=== PATIENT | female | born 1970 | race Caucasian/White ===

== ENCOUNTER 2017-02-06 23:15 | Observation (INO) | payer MEDICAID ==
[2017-02-06] MEDS ORDERED: ONDANSETRON 4 MG/2 ML VIAL IVP STA (23:52)
[2017-02-06] MEDS ORDERED: SODIUM CHLORIDE 0.9% 500 ML IV STA (23:52)
[2017-02-06] MEDS ORDERED: MORPHINE SULFATE 2 MG/ML SYRINGE IVP STA (23:52)
--- NOTE | 2017-02-06 23:58 | ED ---
Nausea/Vomiting/Diarrhea HPI - General Chief complaint: Nausea/Vomiting/Diarrhea Stated complaint: vomiting Time Seen by Provider: 02/06/17 23:41 Source: patient, family Mode of arrival: ambulatory Limitations: no limitations - History of Present Illness Initial comments: This patient is a 46-year-old woman who presents to be evaluated for vomiting and diarrhea as well as some abdominal pain that started about 4-5 hours ago now. Patient had been at a family outing, and then started feel nauseated. Since that time she has had multiple episodes of vomiting, she states more or less continuously since things started. After having vomited a couple of times she noticed that she was having some abdominal pain that she locates in the right lower quadrant of the abdomen. The pain is constant, dull, moderate. Patient has had 3 episodes of diarrhea as well. Patient is not seeing any blood resulting from the vomiting or diarrhea nor any coffee-ground emesis or dark tarry stools. MD complaint: nausea, vomiting, diarrhea, abdominal pain -: hour(s) Description of Vomiting: food contents, bilious Description of Diarrhea: water Associated Abdominal Pain: Yes Location: RLQ Radiation: none Severity: moderate Quality: dull Consistency: constant Improves with: none Worsens with: none Associated Symptoms: nausea/vomiting - Related Data Home Medications Medication Instructions Recorded Confirmed Escitalopram Oxalate [Lexapro] 10 mg PO QID 02/06/17 02/06/17 Norgestimate-Ethinyl Estradiol 1 tab PO DAILY 02/07/17 02/07/17 [Mononessa 28 Tablet] Allergies Allergy/AdvReac Type Severity Reaction Status Date / Time No Known Allergies Allergy Verified 02/06/17 23:22 Review of Systems ROS Statement: Those systems with pertinent positive or pertinent negative responses have been documented in the HPI. ROS Other: All systems not noted in ROS Statement are negative. Constitutional: Denies: fever, chills Respiratory: Denies: cough, dyspnea Cardiovascular: Denies: chest pain, palpitations, syncope Gastrointestinal: Reports: abdominal pain, nausea, vomiting, diarrhea. Denies: hematemesis, melena, hematochezia Genitourinary: Denies: dysuria, hematuria, abnormal menses Musculoskeletal: Denies: back pain Skin: Denies: rash Neurological: Denies: headache, weakness, numbness Past Medical History Past Medical History: No Reported History Additional Past Medical History / Comment(s): endometreosis History of Any Multi-Drug Resistant Organisms: None Reported Past Surgical History: No Surgical Hx Reported Past Psychological History: Depression Smoking Status: Never smoker Past Alcohol Use History: None Reported Past Drug Use History: Marijuana - Past Family History Mother Family Medical History: No Reported History General Exam Limitations: no limitations General appearance: alert, in no apparent distress Head exam: Present: atraumatic, normocephalic, normal inspection Eye exam: Present: normal appearance. Absent: scleral icterus, conjunctival injection ENT exam: Present: mucous membranes dry Neck exam: Present: normal inspection Respiratory exam: Present: normal lung sounds bilaterally. Absent: respiratory distress, wheezes, rales, rhonchi, stridor Cardiovascular Exam: Present: regular rate, normal rhythm, normal heart sounds. Absent: systolic murmur, diastolic murmur, rubs, gallop GI/Abdominal exam: Present: soft, tenderness (Right lower quadrant), diminished bowel sounds. Absent: distended, guarding, rebound, rigid, mass, pulsatile mass , hernia Extremities exam: Present: normal inspection, normal capillary refill. Absent: pedal edema, calf tenderness Back exam: Present: normal inspection. Absent: CVA tenderness (R), CVA tenderness (L) Neurological exam: Present: alert Skin exam: Present: warm, dry, intact, pallor. Absent: rash Course Vital Signs 02/06/17 02/07/17 02/07/17 23:19 01:13 03:15 Temperature 98 F 97.2 F L 97.3 F L Pulse Rate 69 62 63 Respiratory 18 18 18 Rate Blood Pressure 150/73 158/70 126/60 O2 Sat by Pulse 100 97 97 Oximetry 02/07/17 04:50 Temperature Pulse Rate 68 Respiratory 16 Rate Blood Pressure 137/66 O2 Sat by Pulse 97 Oximetry Medical Decision Making - Medical Decision Making This patient is a 46-year-old woman who presents with vomiting and some right lower quadrant pain. The patient's CT is negative for acute appendicitis, there is some possible ileitis versus poor distention on the CT. The patient did require multiple rounds of antibiotic and still had some vomiting so will be admitted for further hydration and antiemetics. She did have good pain relief. - Lab Data Result diagrams: 02/07/17 00:08 02/07/17 00:08 Lab Results 02/07/17 02/07/17 02/07/17 Range/Units 00:08 00:08 01:05 WBC 13.1 H (3.8-10.6) k/uL RBC 4.64 (3.80-5.40) m/uL Hgb 14.4 (11.4-16.0) gm/dL Hct 41.9 (34.0-46.0) % MCV 90.3 (80.0-100.0) fL MCH 31.1 (25.0-35.0) pg MCHC 34.4 (31.0-37.0) g/dL RDW 13.3 (11.5-15.5) % Plt Count 320 (150-450) k/uL Neutrophils % 68 % Lymphocytes % 26 % Monocytes % 3 % Eosinophils % 0 % Basophils % 0 % Neutrophils # 8.9 H (1.3-7.7) k/uL Lymphocytes # 3.5 (1.0-4.8) k/uL Monocytes # 0.4 (0-1.0) k/uL Eosinophils # 0.1 (0-0.7) k/uL Basophils # 0.1 (0-0.2) k/uL Sodium 139 (137-145) mmol/L Potassium 3.9 (3.5-5.1) mmol/L Chloride 101 (98-107) mmol/L Carbon Dioxide 23 (22-30) mmol/L Anion Gap 15 mmol/L BUN 14 (7-17) mg/dL Creatinine 0.70 (0.52-1.04) mg/dL Est GFR (MDRD) Af Amer >60 (>60 ml/min/1.73 sqM) Est GFR (MDRD) Non-Af >60 (>60 ml/min/1.73 sqM) Glucose 185 H (74-99) mg/dL Calcium 9.5 (8.4-10.2) mg/dL Total Bilirubin 0.4 (0.2-1.3) mg/dL AST 26 (14-36) U/L ALT 34 (9-52) U/L Alkaline Phosphatase 68 (38-126) U/L Total Protein 7.7 (6.3-8.2) g/dL Albumin 4.4 (3.5-5.0) g/dL Amylase 119 H (30-110) U/L Lipase 97 (23-300) U/L Urine Color Urine Appearance (Clear) Urine pH (5.0-8.0) Ur Specific [place] (1.001-1.035) Urine Protein (Negative) Urine Glucose (UA) (Negative) Urine Ketones (Negative) Urine Blood (Negative) Urine Nitrite (Negative) Urine Bilirubin (Negative) Urine Urobilinogen (<2.0) mg/dL Ur Leukocyte Esterase (Negative) Urine HCG, Qual Not Detected (Not Detectd) 02/07/17 Range/Units 01:05 WBC (3.8-10.6) k/uL RBC (3.80-5.40) m/uL Hgb (11.4-16.0) gm/dL Hct (34.0-46.0) % MCV (80.0-100.0) fL MCH (25.0-35.0) pg MCHC (31.0-37.0) g/dL RDW (11.5-15.5) % Plt Count (150-450) k/uL Neutrophils % % Lymphocytes % % Monocytes % % Eosinophils % % Basophils % % Neutrophils # (1.3-7.7) k/uL Lymphocytes # (1.0-4.8) k/uL Monocytes # (0-1.0) k/uL Eosinophils # (0-0.7) k/uL Basophils # (0-0.2) k/uL Sodium (137-145) mmol/L Potassium (3.5-5.1) mmol/L Chloride (98-107) mmol/L Carbon Dioxide (22-30) mmol/L Anion Gap mmol/L BUN (7-17) mg/dL Creatinine (0.52-1.04) mg/dL Est GFR (MDRD) Af Amer (>60 ml/min/1.73 sqM) Est GFR (MDRD) Non-Af (>60 ml/min/1.73 sqM) Glucose (74-99) mg/dL Calcium (8.4-10.2) mg/dL Total Bilirubin (0.2-1.3) mg/dL AST (14-36) U/L ALT (9-52) U/L Alkaline Phosphatase (38-126) U/L Total Protein (6.3-8.2) g/dL Albumin (3.5-5.0) g/dL Amylase (30-110) U/L Lipase (23-300) U/L Urine Color Colorless Urine Appearance Clear (Clear) Urine pH 7.5 (5.0-8.0) Ur Specific [place] 1.010 (1.001-1.035) Urine Protein Negative (Negative) Urine Glucose (UA) 3+ H (Negative) Urine Ketones 3+ H (Negative) Urine Blood Negative (Negative) Urine Nitrite Negative (Negative) Urine Bilirubin Negative (Negative) Urine Urobilinogen <2.0 (<2.0) mg/dL Ur Leukocyte Esterase Negative (Negative) Urine HCG, Qual (Not Detectd) Disposition Clinical Impression: Ileitis, Intractable vomiting with nausea Disposition: ADMITTED IP TO THIS [facility] Condition: Fair
[2017-02-07 00:21] LABS: Basophils # (A) 0.1 k/uL (0-0.2); Basophils % (A) 0 %; CH 31.1; CHCM 34.6; Eosinophils # (A) 0.1 k/uL (0-0.7); Eosinophils % (A) 0 %; HCT 41.9 % (34.0-46.0); HDW 2.51; HGB 14.4 gm/dL (11.4-16.0); Luc % (Auto) 2; Lymphocytes # (A) 3.5 k/uL (1.0-4.8); Lymphocytes % (A) 26 %; MCH 31.1 pg (25.0-35.0); MCHC 34.4 g/dL (31.0-37.0); MCV 90.3 fL (80.0-100.0); Mean Platelet Volume 6.5; Monocytes # (A) 0.4 k/uL (0-1.0); Monocytes % (A) 3 %; Neutrophils # (A) 8.9 k/uL (1.3-7.7); Neutrophils % (A) 68 %; RBC 4.64 m/uL (3.80-5.40); RDW 13.3 % (11.5-15.5); WBC 13.1 k/uL (3.8-10.6); WBC (Perox) 13.21
[2017-02-07 00:30] LABS: ALT 34 U/L (9-52); AST 26 U/L (14-36); Alkaline Phosphatase 68 U/L (38-126); Amylase 119 U/L (30-110); Anion Gap 15 mmol/L; Blood Urea Nitrogen 14 mg/dL (7-17); Calcium 9.5 mg/dL (8.4-10.2); Carbon Dioxide 23 mmol/L (22-30); Chloride 101 mmol/L (98-107); Glucose 185 mg/dL (74-99); Non-African American GFR(MDRD) >60 (>60 ml/min/1.73 sqM); Potassium 3.9 mmol/L (3.5-5.1); Sodium 139 mmol/L (137-145); Total Bilirubin 0.4 mg/dL (0.2-1.3); Total Protein 7.7 g/dL (6.3-8.2)
--- NOTE | 2017-02-07 01:14 | CT ---
EXAM: CT Abdomen and Pelvis Without Intravenous Contrast. CLINICAL HISTORY: Reason: abdominal pain hx. of endometriosis. Lower abdominal pain. nausea/vomiting/ diarrhea. Pt. denies . TECHNIQUE: Axial computed tomography images of the abdomen and pelvis without intravenous contrast. CTDI is 5.10 mGy and DLP is 216.50 mGy-cm This CT exam was performed using one or more of the following dose reduction techniques: automated exposure control, adjustment of the mA and/or kV according to patient size, and/or use of iterative reconstruction technique. COMPARISON: No relevant prior studies available. FINDINGS: Lack of contrast limits evaluation of viscera. No urolithiasis or hydronephrosis. No bowel obstruction. Multiple bowel segments are underdistended limiting evaluation for wall thickening. Equivocal mural thickening in the transverse through distal colon along with some segments of small bowel may relate to underdistention. Correlate for any evidence of enteritis/colitis. Findings are equivocal, and again lack of contrast/underdistention limits evaluation. No evidence for appendicitis, acute pancreatitis or other acute process. Suspected fibroid uterus. Mild hypoventilatory changes lung bases. Osseous degenerative changes. Nonaggressive sclerotic focus right iliac bone. IMPRESSION: No bowel obstruction. Multiple bowel segments are underdistended limiting evaluation for wall thickening. Equivocal mural thickening in the transverse through distal colon along with some segments of small bowel may relate to underdistention. Correlate for any evidence of enteritis/colitis. Findings are equivocal, and again lack of contrast/underdistention limits evaluation. Incidental findings, as above.
[2017-02-07 01:22] LABS: Appearance,Urine Clear (Clear); Bilirubin,Urine Negative (Negative); Glucose,Urine (UA) 3+ (Negative); Leukocyte Esterase,Urine Negative (Negative); Nitrite,Urine Negative (Negative); PH, Urine 7.5 (5.0-8.0); Protein,Urine Negative (Negative); UA Billing (MACRO vs. MICRO) CHEM; Urobilinogen,Urine <2.0 mg/dL (<2.0)
[2017-02-07] MEDS ORDERED: ONDANSETRON 4 MG/2 ML VIAL IVP STA ×2 (01:26→02:31)
[2017-02-07 01:30] LABS: Ketones,Urine 3+ (Negative)
[2017-02-07] MEDS ORDERED: SODIUM CHLORIDE 0.9% 500 ML IV STA (02:32)
[2017-02-07] MEDS ORDERED: METOCLOPRAMIDE 5 MG/ML 2 ML VIAL IVP STA (03:40)
[2017-02-07] MEDS ORDERED: PROCHLORPERAZINE 5 MG TAB PO PRN (04:31)
[2017-02-07] MEDS ORDERED: PROCHLORPERAZINE SUPPOSITORY 25 MG SUPP RECTAL PRN (04:31)
[2017-02-07] MEDS ORDERED: MORPHINE SULFATE 4 MG/ML SYRINGE IV PRN (04:31)
[2017-02-07] MEDS ORDERED: ONDANSETRON 4 MG/2 ML VIAL IVP PRN (04:31)
[2017-02-07] MEDS ORDERED: NALOXONE 0.4 MG/ML 1 ML VIAL IV PRN (04:31)
[2017-02-07 05:04] VITALS: RESP 18
[2017-02-07] MEDS: SODIUM CHLORIDE 0.9% 1,000 ML IV SCH ×2 (05:56→12:26)
[2017-02-07 06:26] VITALS: BMI 22.8
[2017-02-07 08:18] VITALS: BP 143/76; PULSE 68; TEMP 97.9
[2017-02-07] MEDS ORDERED: PANTOPRAZOLE 40 MG/10 ML VIAL IV SCH (09:00)
[2017-02-07 12:02] LABS: Hemoglobin A1C 5.4 % (4.2-6.1)
--- NOTE | 2017-02-07 12:56 | HP ---
DATE OF ADMISSION: 02/07/2017 ADMISSION HISTORY AND PHYSICAL/DISCHARGE SUMMARY: Patient is a 46-year-old pleasant female who came in with complaints of nausea. Patient denied any abdominal pain to me. All her nausea started yesterday. Patient denied any diarrhea to me. Patient apparently had diarrhea yesterday. Did not use any antibiotics. Patient was complaining of flulike symptoms, body aches, denied any fevers. Patient appears to have leukocytosis. Patient has a CT of the abdomen which showed some nonspecific changes consistent with gastroenteritis. Although clinically I do not believe patient has colitis as read on the CT and patient will not need any antibiotics. Patient is not dehydrated at least at this point of time. Patient is getting IV fluids. We will give her a couple more hours of IV fluids at 145 mL. After that, patient will be discharged and we will also get an influenza testing. Patient denied any blood in the stools. Denied any hematemesis, hematochezia. REVIEW OF SYSTEMS: CONSTITUTIONAL: No fever, no malaise, no fatigue. HEENT: No recent visual problems or hearing problems. Denied any sore throat. CARDIOVASCULAR: No chest pain, orthopnea, PND, no palpitations, no syncope. PULMONARY: No shortness of breath, no cough, no hemoptysis. GASTROINTESTINAL: As described in HPI. NEUROLOGICAL: No headaches, no weakness, no numbness. HEMATOLOGICAL: Denies any bleeding or petechiae. GENITOURINARY: Denies any burning micturition, frequency, or urgency. MUSCULOSKELETAL/RHEUMATOLOGICAL: Denies any joint pain, swelling, or any muscle pain. ENDOCRINE: Denies any polyuria or polydipsia. The rest of the 14 point review of systems is negative. Home medications include: 1. Lexapro. 2. Oral contraceptive pills. ALLERGIES: No known drug allergies. PAST MEDICAL HISTORY: Past medical history is significant for endometriosis and depression. SOCIAL HISTORY: Denies smoking. Occasional use of marijuana. Denied any alcohol abuse. FAMILY HISTORY: Denied any family history of hypertension or diabetes mellitus in the family. PHYSICAL EXAMINATION: VITAL SIGNS: Temperature 97.9, pulse of 68, respiratory rate of 18, blood pressure is 143/76, saturating at 98% on room air. GENERAL: Patient is in a bit of distress because of generalized body aches and flulike symptoms. HEENT: Pupils are round and equally reacting to light. EOMI. No scleral icterus. No conjunctival pallor. Normocephalic, atraumatic. No pharyngeal erythema. No thyromegaly. CARDIOVASCULAR: S1 and S2 present. No murmurs, rubs, or gallops. PULMONARY: Chest is clear to auscultation, no wheezing or crackles. ABDOMEN: Soft, nontender, nondistended, normoactive bowel sounds. No palpable organomegaly. MUSCULOSKELETAL: No joint swelling or deformity. EXTREMITIES: No cyanosis, clubbing, or pedal edema. NEUROLOGICAL: Gross neurological examination did not reveal any focal deficits. SKIN: No rashes. LABORATORY DATA: CBC, CMP are abnormal for mildly elevated WBC count of 13,100, blood glucose is minimally elevated. I will obtain a hemoglobin A1c before her discharge which probably needs to be followed as an outpatient. Patient urine is positive for glucose as well. CT of the abdomen was reviewed. ASSESSMENT AND PLAN: 1. Gastroenteritis mostly viral in nature I cannot completely rule out gastritis because of which the patient was given Prilosec and ( ) the patient was subsequently discharged. 2. Leukocytosis, reactive response. 3. Glucose in the urine. My suspicion is low for diabetes mellitus, but I will obtain a hemoglobin A1c, which needs to be followed as an outpatient. 4. Depression. Can continue her Lexapro. Patient will be discharged today. Will obtain influenza testing before her discharge and give her a prescription for omeprazole and ondansetron. This dictation is both H&P and discharge summary. Discharge diet: Regular. Activity as tolerated and advance the diet full liquid diet.
== END 2017-02-07 13:20 | disposition home or self-care (01) ==
LOC: EC 23:15 → 5MS5E 02-07 04:31
PROVIDERS: ADMIT Hospitalist; ATTEND Hospitalist
DX: K52.9 Noninfective gastroenteritis and colitis, unspecified (principal); Z79.3 Long term (current) use of hormonal contraceptives; Z79.899 Other long term (current) drug therapy; R10.31 Right lower quadrant pain; N80.9 Endometriosis, unspecified; F32.9 Major depressive disorder, single episode, unspecified
CPT/HCPCS: 96374 ×2; 96375 ×3; 96376 ×3; 96361 ×5; 99285 ×2; 36415; 80053; 82150; 83036; 83690; 85025; 81003; 81025; 87502; 74176; G0378; S0183; J2765; J2405; J2270; C9113

== ENCOUNTER 2017-12-19 22:58 | Observation (INO) | payer MEDICAID ==
[2017-12-19] MEDS ORDERED: ONDANSETRON 4 MG/2 ML VIAL IVP STA (23:11)
[2017-12-19] MEDS ORDERED: SODIUM CHLORIDE 0.9% 1,000 ML IV STA ×2 (23:11)
[2017-12-19] MEDS ORDERED: MORPHINE SULFATE 4 MG/ML SYRINGE IV STA (23:11)
--- NOTE | 2017-12-19 23:15 | ED ---
General Adult HPI - General Chief complaint: Nausea/Vomiting/Diarrhea Stated complaint: Vomiting Time Seen by Provider: 12/19/17 23:07 Source: patient, family, RN notes reviewed, old records reviewed Mode of arrival: wheelchair Limitations: no limitations - History of Present Illness Initial comments: 47 yo female presents for evaluation of nausea and vomiting. She's had approximately 2 hours of acute onset vomiting. Greater than 10 episodes. This is nonbloody nonbilious. She denies any abdominal pain. She is also had 2 loose bowel movements since her vomiting began. No history of fever or chills. No preceding symptoms. Patient is unable to give a clear history as she is in distress secondary to her vomiting. She has had a similar episode this approximately one year ago according to her . She has past medical history of chronic jaw pain and uses medical marijuana. No other prescription drugs or medications. - Related Data Home Medications Medication Instructions Recorded Confirmed Escitalopram Oxalate [Lexapro] 10 mg PO DAILY 02/06/17 12/19/17 Norgestimate-Ethinyl Estradiol 1 tab PO DAILY 02/07/17 12/19/17 [Mononessa 28 Tablet] Magnesium 200 mg PO DAILY 12/19/17 12/19/17 Allergies Allergy/AdvReac Type Severity Reaction Status Date / Time No Known Allergies Allergy Verified 12/19/17 23:20 Review of Systems ROS Statement: Those systems with pertinent positive or pertinent negative responses have been documented in the HPI. ROS Other: All systems not noted in ROS Statement are negative. Past Medical History Past Medical History: No Reported History Additional Past Medical History / Comment(s): endometreosis, mono 11/28/17 History of Any Multi-Drug Resistant Organisms: None Reported Past Surgical History: No Surgical Hx Reported Past Anesthesia/Blood Transfusion Reactions: No Reported Reaction Past Psychological History: Depression Smoking Status: Never smoker Past Alcohol Use History: None Reported Past Drug Use History: Marijuana - Past Family History Mother Family Medical History: No Reported History General Exam Limitations: no limitations General appearance: alert, in distress Head exam: Present: atraumatic, normocephalic Eye exam: Present: normal appearance, PERRL, EOMI ENT exam: Present: mucous membranes dry Neck exam: Present: normal inspection. Absent: tenderness Respiratory exam: Present: normal lung sounds bilaterally. Absent: respiratory distress Cardiovascular Exam: Present: regular rate, normal rhythm GI/Abdominal exam: Present: soft. Absent: distended, tenderness, guarding Extremities exam: Present: normal inspection, normal capillary refill Neurological exam: Present: alert, oriented X3, CN II-XII intact. Absent: motor sensory deficit Psychiatric exam: Present: normal affect, normal mood Skin exam: Present: warm, intact, diaphoretic. Absent: cyanosis Course Vital Signs 12/19/17 12/19/17 22:59 23:59 Temperature 98.7 F Pulse Rate 72 71 Respiratory 16 21 Rate Blood Pressure 184/85 152/67 O2 Sat by Pulse 98 100 Oximetry - Reevaluation(s) Reevaluation #1: 12/20/17 01:11 On reevaluation, patient is still vomiting. She complains of generalized weakness. No abdominal pain. Medical Decision Making - Medical Decision Making 47 yo female presenting with acute nausea and vomiting. On examination, patient is cool and clammy. No abdominal tenderness. Vitals are stable. Laboratory studies reveal elevated white blood cell count 15.4, likely reactive. Electrolytes within normal limits. Urinalysis is significant for 2+ ketones. X-ray negative for obstruction or free air. On reevaluation, patient is still having significant vomiting. She will be placed in observation for continued IV hydration and antiemetics. - Lab Data Result diagrams: 12/19/17 23:34 12/19/17 23:34 Lab Results 12/19/17 12/19/17 12/20/17 Range/Units 23:34 23:34 00:22 WBC 15.4 H (3.8-10.6) k/uL RBC 4.40 (3.80-5.40) m/uL Hgb 13.4 (11.4-16.0) gm/dL Hct 41.8 (34.0-46.0) % MCV 95.1 (80.0-100.0) fL MCH 30.5 (25.0-35.0) pg MCHC 32.1 (31.0-37.0) g/dL RDW 13.0 (11.5-15.5) % Plt Count 330 (150-450) k/uL Neutrophils % 54 % Lymphocytes % 39 % Monocytes % 3 % Eosinophils % 1 % Basophils % 0 % Neutrophils # 8.3 H (1.3-7.7) k/uL Lymphocytes # 6.1 H (1.0-4.8) k/uL Monocytes # 0.5 (0-1.0) k/uL Eosinophils # 0.1 (0-0.7) k/uL Basophils # 0.1 (0-0.2) k/uL Sodium 138 (137-145) mmol/L Potassium 3.9 (3.5-5.1) mmol/L Chloride 101 (98-107) mmol/L Carbon Dioxide 24 (22-30) mmol/L Anion Gap 13 mmol/L BUN 10 (7-17) mg/dL Creatinine 0.70 (0.52-1.04) mg/dL Est GFR (MDRD) Af Amer >60 (>60 ml/min/1.73 sqM) Est GFR (MDRD) Non-Af >60 (>60 ml/min/1.73 sqM) Glucose 160 H (74-99) mg/dL Calcium 10.0 (8.4-10.2) mg/dL Total Bilirubin 0.6 (0.2-1.3) mg/dL AST 25 (14-36) U/L ALT 28 (9-52) U/L Alkaline Phosphatase 63 (38-126) U/L Total Protein 7.6 (6.3-8.2) g/dL Albumin 4.5 (3.5-5.0) g/dL Lipase 113 (23-300) U/L Urine Color Light Yellow Urine Appearance Clear (Clear) Urine pH 6.5 (5.0-8.0) Ur Specific [place] 1.008 (1.001-1.035) Urine Protein Negative (Negative) Urine Glucose (UA) Trace H (Negative) Urine Ketones 2+ H (Negative) Urine Blood Trace H (Negative) Urine Nitrite Negative (Negative) Urine Bilirubin Negative (Negative) Urine Urobilinogen <2.0 (<2.0) mg/dL Ur Leukocyte Esterase Negative (Negative) Urine RBC 2 (0-5) /hpf Urine WBC 2 (0-5) /hpf Ur Squamous Epith Cells <1 (0-4) /hpf Urine Bacteria Rare H (None) /hpf Urine HCG, Qual (Not Detectd) 12/20/17 Range/Units 00:22 WBC (3.8-10.6) k/uL RBC (3.80-5.40) m/uL Hgb (11.4-16.0) gm/dL Hct (34.0-46.0) % MCV (80.0-100.0) fL MCH (25.0-35.0) pg MCHC (31.0-37.0) g/dL RDW (11.5-15.5) % Plt Count (150-450) k/uL Neutrophils % % Lymphocytes % % Monocytes % % Eosinophils % % Basophils % % Neutrophils # (1.3-7.7) k/uL Lymphocytes # (1.0-4.8) k/uL Monocytes # (0-1.0) k/uL Eosinophils # (0-0.7) k/uL Basophils # (0-0.2) k/uL Sodium (137-145) mmol/L Potassium (3.5-5.1) mmol/L Chloride (98-107) mmol/L Carbon Dioxide (22-30) mmol/L Anion Gap mmol/L BUN (7-17) mg/dL Creatinine (0.52-1.04) mg/dL Est GFR (MDRD) Af Amer (>60 ml/min/1.73 sqM) Est GFR (MDRD) Non-Af (>60 ml/min/1.73 sqM) Glucose (74-99) mg/dL Calcium (8.4-10.2) mg/dL Total Bilirubin (0.2-1.3) mg/dL AST (14-36) U/L ALT (9-52) U/L Alkaline Phosphatase (38-126) U/L Total Protein (6.3-8.2) g/dL Albumin (3.5-5.0) g/dL Lipase (23-300) U/L Urine Color Urine Appearance (Clear) Urine pH (5.0-8.0) Ur Specific [place] (1.001-1.035) Urine Protein (Negative) Urine Glucose (UA) (Negative) Urine Ketones (Negative) Urine Blood (Negative) Urine Nitrite (Negative) Urine Bilirubin (Negative) Urine Urobilinogen (<2.0) mg/dL Ur Leukocyte Esterase (Negative) Urine RBC (0-5) /hpf Urine WBC (0-5) /hpf Ur Squamous Epith Cells (0-4) /hpf Urine Bacteria (None) /hpf Urine HCG, Qual Not Detected (Not Detectd) Disposition Clinical Impression: Dehydration, Intractable nausea and vomiting Disposition: ADMITTED IP TO THIS [facility] Condition: Stable Referrals: None,Stated [Primary Care Provider] - 1-2 days Decision to Admit Reason: Admit from EC Decision Date: 12/20/17 Decision Time: 01:13
[2017-12-19 23:46] LABS: Basophils # (A) 0.1 k/uL (0-0.2); Basophils % (A) 0 %; Eosinophils # (A) 0.1 k/uL (0-0.7); Eosinophils % (A) 1 %; HCT 41.8 % (34.0-46.0); HGB 13.4 gm/dL (11.4-16.0); Lymphocytes # (A) 6.1 k/uL (1.0-4.8); MCH 30.5 pg (25.0-35.0); MCHC 32.1 g/dL (31.0-37.0); MCV 95.1 fL (80.0-100.0); Mean Platelet Volume 6.9; Monocytes # (A) 0.5 k/uL (0-1.0); Monocytes % (A) 3 %; Neutrophils # (A) 8.3 k/uL (1.3-7.7); Neutrophils % (A) 54 %; Platelet Count 330 k/uL (150-450); WBC 15.4 k/uL (3.8-10.6)
[2017-12-19 23:48] LABS: Lymphocytes % (A) 39 %
[2017-12-19 23:50] LABS: ALT 28 U/L (9-52); AST 25 U/L (14-36); Albumin 4.5 g/dL (3.5-5.0); Alkaline Phosphatase 63 U/L (38-126); Anion Gap 13 mmol/L; Blood Urea Nitrogen 10 mg/dL (7-17); Carbon Dioxide 24 mmol/L (22-30); Chloride 101 mmol/L (98-107); Glucose 160 mg/dL (74-99); Lipase 113 U/L (23-300); Potassium 3.9 mmol/L (3.5-5.1); Sodium 138 mmol/L (137-145); Total Bilirubin 0.6 mg/dL (0.2-1.3); Total Protein 7.6 g/dL (6.3-8.2)
--- NOTE | 2017-12-20 00:26 | XR ---
EXAMINATION TYPE: XR KUB DATE OF EXAM: 12/19/2017 COMPARISON: NONE HISTORY: Vomiting TECHNIQUE: Single view FINDINGS: Bowel gas pattern is normal. There is no sign of intestinal obstruction or pneumoperitoneum . Fecal pattern is normal. There is a 1 cm calcification over the right iliac bone. There are no path ologic calcifications over the kidneys. Lung bases are clear. IMPRESSION: Nonacute abdomen. Calcification over the right lower quadrant apparently is bone [place] e vident on the old CT scan of 02/07/2017.
[2017-12-20 00:38] LABS: Appearance,Urine Clear (Clear); Bacteria,Urine Rare /hpf; Bilirubin,Urine Negative (Negative); Blood,Urine Trace (Negative); Color,Urine Light Yellow; Glucose,Urine (UA) Trace (Negative); Ketones,Urine 2+ (Negative); Leukocyte Esterase,Urine Negative (Negative); PH, Urine 6.5 (5.0-8.0); Protein,Urine Negative (Negative); RBC,Urine 2 /hpf (0-5); Specific Gravity,Urine 1.008 (1.001-1.035); Squamous Epithelial Cell,Urine <1 /hpf (0-4); Urobilinogen,Urine <2.0 mg/dL (<2.0); WBC,Urine 2 /hpf (0-5)
[2017-12-20] MEDS ORDERED: ONDANSETRON 4 MG/2 ML VIAL IVP STA (01:06)
[2017-12-20] MEDS ORDERED: ONDANSETRON 4 MG/2 ML VIAL IVP PRN (01:09)
[2017-12-20] MEDS ORDERED: NALOXONE 0.4 MG/ML 1 ML VIAL IV PRN (01:09)
[2017-12-20] MEDS ORDERED: DICYCLOMINE 10 MG/ML 2 ML AMP IM STA (01:17)
[2017-12-20 02:04] LABS: Glucose,Whole Blood 163 mg/dL (75-99)
[2017-12-20 02:18] VITALS: RESP 18
[2017-12-20 05:52] VITALS: BP 137/68; PULSE 62
[2017-12-20] MEDS ORDERED: METOCLOPRAMIDE 5 MG/ML 2 ML VIAL IVP SCH (06:00)
[2017-12-20 10:25] VITALS: TEMP 97.6
--- NOTE | 2017-12-20 23:26 | HP ---
HISTORY AND PHYSICAL HISTORY AND PHYSICAL AND DISCHARGE SUMMARY: CHIEF COMPLAINTS: Nausea and vomiting. HISTORY OF PRESENT ILLNESS: This 47-year-old woman with a past medical history of multiple medical problems, including endometriosis, history of depression, to be followed by Dr. Nicolas in the outpatient setting, was complaining of incessant vomiting. Patient apparently had at least 10 episodes. The patient did not have any abdominal pain, had some nausea, and the patient came to [facility] and was admitted for further evaluation and treatment. There is no history of any fever, rigor or chills. No history of headache, loss of consciousness, seizures. The patient had similar episodes in the past. PAST MEDICAL HISTORY: 1. History of endometriosis. 2. History of depression. HOME MEDICATIONS: 1. Lexapro 10 mg p.o. daily. 2. Mononessa 1 tablet p.o. daily. 3. Magnesium 200 mg p.o. daily. ALLERGIES: NONE. FAMILY HISTORY: No history of heart disease or strokes in the family. SOCIAL HISTORY: History of THC. No history of smoking. No history of alcohol intake. REVIEW OF SYSTEMS: ENT: No diminished hearing. No diminished vision. CARDIOVASCULAR SYSTEM: No angina, palpitations. RESPIRATORY SYSTEM: No cough, hemoptysis. GI: As mentioned earlier. : No dysuria or retention. NERVOUS SYSTEM: No numbness, weakness. ALLERGY/IMMUNOLOGY: No asthma, hayfever. MUSCULOSKELETAL: As mentioned earlier. HEMATOLOGY/ONCOLOGY: No history of anemia. ENDOCRINE: No history of diabetes, hypothyroidism. CONSTITUTIONAL: As mentioned earlier. DERMATOLOGY: Negative. RHEUMATOLOGY: Negative. PSYCHIATRY: As mentioned earlier. PHYSICAL EXAMINATION: Patient is alert and oriented x3. Pulse 62, blood pressure 137/68, respiration 18, temperature 97.3, pulse ox 99% on room air. HEENT: Conjunctivae normal. Oral mucosa moist. NECK: No jugular venous distention. No carotid bruit. No lymph node enlargement. CARDIOVASCULAR SYSTEM: S1, S2 muffled. No S3. No S4. RESPIRATORY SYSTEM: Breath sounds diminished at the bases. No rhonchi. No crackles. ABDOMEN: Soft, non-tender. No mass palpable. LEGS: No edema. No swelling. NERVOUS SYSTEM: Higher functions as mentioned earlier. Moves all 4 limbs. No focal motor or sensory deficit. LYMPHATICS: No lymph node palpable in neck, axillae or groin. SKIN: No ulcer, rash, bleeding. LABS: WBC 15.4 and glucose 160. UA noted. ASSESSMENT: 1. Incessant vomiting; possible acute gastritis. 2. Increased white count, possibly reactive. 3. History of endometriosis. 4. History of depression. 5. FULL CODE. RECOMMENDATIONS AND DISCUSSION: In this 47-year-old woman who presented with multiple medical issues, we will monitor the patient closely. The patient has improved significantly. Patient is keen on going home. I would recommend the following medications and to follow closely with Dr. Nicolas in the outpatient setting. DISCHARGE ADVICE AND MEDICATIONS: 1. Diet is cardiac. 2. Activity limited until followup. 3. Follow up with Dr. Nicolas as advised. 4. Follow-up lab CBC, BMP. 5. Lexapro 10 mg daily. 6. Magnesium 200 mg daily. 7. Norgestimate 1 tablet p.o. daily. 8. Zofran 4 mg q.6 p.r.n. 9. Protonix 40 mg p.o. b.i.d. MMODL / IJN: [id number] /
== END 2017-12-20 13:00 | disposition home or self-care (01) ==
LOC: EC 22:58 → 4MS4W 12-20 01:09
PROVIDERS: ADMIT Hospitalist; ATTEND Hospitalist
DX: E86.0 Dehydration (principal); R11.2 Nausea with vomiting, unspecified; R19.7 Diarrhea, unspecified; D72.829 Elevated white blood cell count, unspecified; N80.9 Endometriosis, unspecified; R68.84 Jaw pain; F32.9 Major depressive disorder, single episode, unspecified; Z79.899 Other long term (current) drug therapy; Z79.3 Long term (current) use of hormonal contraceptives
CPT/HCPCS: 99285; 96374; 96361 ×4; 96376 ×3; 96372 ×2; 96375; 36415; 80053; 83690; 85025; 81001; 81025; 74018; G0378; J0500; J2765; J2405 ×2

== ENCOUNTER → 2017-12-22 | Outpatient (CLI) | payer MEDICAID ==
[2017-12-22 18:52] LABS: ALT 34 U/L (9-52); AST 31 U/L (14-36); Albumin 4.7 g/dL (3.5-5.0); Alkaline Phosphatase 59 U/L (38-126); Anion Gap 14 mmol/L; Blood Urea Nitrogen 16 mg/dL (7-17); Calcium 10.4 mg/dL (8.4-10.2); Carbon Dioxide 26 mmol/L (22-30); Chloride 95 mmol/L (98-107); Glucose 102 mg/dL (74-99); Potassium 4.2 mmol/L (3.5-5.1); Sodium 135 mmol/L (137-145); Total Protein 8.3 g/dL (6.3-8.2)
[2017-12-22 18:55] LABS: Basophils # (A) 0.1 k/uL (0-0.2); Basophils % (A) 1 %; Eosinophils # (A) 0.1 k/uL (0-0.7); Eosinophils % (A) 0 %; HGB 15.4 gm/dL (11.4-16.0); Lymphocytes # (A) 3.9 k/uL (1.0-4.8); Lymphocytes % (A) 25 %; MCH 30.3 pg (25.0-35.0); MCHC 33.4 g/dL (31.0-37.0); MCV 90.8 fL (80.0-100.0); Mean Platelet Volume 7.9; Monocytes # (A) 1.1 k/uL (0-1.0); Monocytes % (A) 7 %; Neutrophils # (A) 10.1 k/uL (1.3-7.7); Neutrophils % (A) 66 %; Platelet Count 334 k/uL (150-450); RBC 5.07 m/uL (3.80-5.40); RDW 12.9 % (11.5-15.5); WBC 15.4 k/uL (3.8-10.6)
[2017-12-22 19:01] LABS: T4, Free (Free Thyroxine) 1.31 ng/dL (0.78-2.19)
[2017-12-23 12:55] LABS: Hemoglobin A1C 5.3 % (4.0-6.0)
== END | disposition home or self-care (01) ==
LOC: MMGSC 15:30
PROVIDERS: ATTEND Family Medicine
DX: D72.829 Elevated white blood cell count, unspecified (principal); R73.9 Hyperglycemia, unspecified; R53.83 Other fatigue
CPT/HCPCS: 36415; 80053; 82306; 82607; 83036; 84439; 84443; 85025

== ENCOUNTER 2017-12-27 06:03 | Emergency (ER) | payer MEDICAID ==
[2017-12-27] MEDS ORDERED: SODIUM CHLORIDE 0.9% 1,000 ML IV STA (06:20)
[2017-12-27] MEDS ORDERED: METOCLOPRAMIDE 5 MG/ML 2 ML VIAL IVP STA (06:20)
--- NOTE | 2017-12-27 06:26 | ED ---
General Adult HPI - General Source: patient, family, RN notes reviewed Mode of arrival: wheelchair Limitations: no limitations <Victoriano Levi - Last Filed: 12/27/17 06:57> <Agusto Torres - Last Filed: 12/27/17 08:39> - General Chief complaint: Abdominal Pain Stated complaint: vomiting Time Seen by Provider: 12/27/17 06:05 - History of Present Illness Initial comments: This is a 47-year-old female presents emergency Department complaining of vomiting since last night at 9:00. Patient complains of just cramping and abdomen no specific area of pain. Patient states she was seen here about a week ago for mono and was vomiting at that time. Patient denies any fever chills. Patient denies any diarrhea. Patient denies any blood in the vomitus. Patient denies any chest pain difficulty breathing or shortness of breath. ( Victoriano Levi) - Related Data Home Medications Medication Instructions Recorded Confirmed Escitalopram Oxalate [Lexapro] 10 mg PO DAILY 02/06/17 12/27/17 Norgestimate-Ethinyl Estradiol 1 tab PO DAILY 02/07/17 12/27/17 [Mononessa 28 Tablet] Magnesium 200 mg PO DAILY 12/19/17 12/27/17 Cholecalciferol [Vitamin D3] 4,000 unit PO DAILY 12/27/17 12/27/17 Vitamin B Complex 1 cap PO DAILY 12/27/17 12/27/17 Previous Rx's Medication Instructions Recorded Pantoprazole Sodium [Protonix] 40 mg PO BID #60 tablet. 12/20/17 Dicyclomine [Bentyl] 10 mg PO TID #15 capsule 12/27/17 Prochlorperazine [Compazine] 10 mg PO Q8H PRN #10 tab 12/27/17 Allergies Allergy/AdvReac Type Severity Reaction Status Date / Time No Known Allergies Allergy Verified 12/27/17 08:11 Review of Systems ROS Other: All systems not noted in ROS Statement are negative. <Victoriano Levi - Last Filed: 12/27/17 06:57> ROS Other: All systems not noted in ROS Statement are negative. <Agusto Torres - Last Filed: 12/27/17 08:39> ROS Statement: Those systems with pertinent positive or pertinent negative responses have been documented in the HPI. Past Medical History Past Medical History: No Reported History Additional Past Medical History / Comment(s): endometreosis, mono 11/28/17 History of Any Multi-Drug Resistant Organisms: None Reported Past Surgical History: No Surgical Hx Reported Past Anesthesia/Blood Transfusion Reactions: No Reported Reaction Past Psychological History: Depression Smoking Status: Never smoker Past Alcohol Use History: None Reported Past Drug Use History: Marijuana - Past Family History Mother Family Medical History: No Reported History <Victoriano Levi - Last Filed: 12/27/17 06:57> General Exam Limitations: no limitations <Victoriano Levi - Last Filed: 12/27/17 06:57> <Agusto Torres - Last Filed: 12/27/17 08:39> - General Exam Comments Initial Comments: GENERAL: Patient is well-developed and well-nourished. Patient is nontoxic and well- hydrated and is in mild distress. ENT: Neck is soft and supple. No significant lymphadenopathy is noted. Oropharynx is clear. Moist mucous membranes. Neck has full range of motion without eliciting any pain. EYES: The sclera were anicteric and conjunctiva were pink and moist. Extraocular movements were intact and pupils were equal round and reactive to light. Eyelids were unremarkable. PULMONARY: Unlabored respirations. Good breath sounds bilaterally. No audible rales rhonchi or wheezing was noted. CARDIOVASCULAR: There is a regular rate and rhythm without any murmurs gallops or rubs. ABDOMEN: Soft and nontender with normal bowel sounds. No palpable organomegaly was noted. There is no palpable pulsatile mass. SKIN: Skin is clear with no lesions or rashes and otherwise unremarkable. NEUROLOGIC: Patient is alert and oriented x3. Cranial nerves II through XII are grossly intact. Motor and sensory are also intact. Normal speech, volume and content. Symmetrical smile. MUSCULOSKELETAL: Normal extremities with adequate strength and full range of motion. LYMPHATICS: No significant lymphadenopathy is noted PSYCHIATRIC: Normal psychiatric evaluation. Normal interpersonal interactions appears functionally intact in deals appropriately with others. No signs of depression. No signs of anxiety. (Victoriano Levi) Course <Victoriano Levi - Last Filed: 12/27/17 06:57> <Agusto Torres - Last Filed: 12/27/17 08:39> Vital Signs 12/27/17 06:05 Temperature 97.8 F Pulse Rate 76 Respiratory 16 Rate Blood Pressure 167/79 O2 Sat by Pulse 100 Oximetry - Reevaluation(s) Reevaluation #1: 12/27/17 08:35 Patient was endorsed me by Dr. Levi at our shift change. This is pending CAT scan. CAT scan shows no evidence of acute findings at this time. I did review the report and a CAT scan. Patient is feeling much improved at this time and will be discharged she does have a follow-up appointment with her doctor on of this week today being Wednesday. She'll be discharged on antiemetics she has trouble with Zofran she'll be placed on Compazine. Additionally Bentyl. (Agusto Torres) Medical Decision Making - Lab Data Result diagrams: 12/27/17 06:21 12/27/17 06:21 <Victoriano Levi - Last Filed: 12/27/17 06:57> - Lab Data Result diagrams: 12/27/17 06:21 12/27/17 06:21 <Agusto Torres - Last Filed: 12/27/17 08:39> - Medical Decision Making Dr. Torres be taking over the care of this patient at 7 AM (Victoriano Levi) - Lab Data Lab Results 12/27/17 12/27/17 12/27/17 Range/Units 06:21 06:21 06:27 WBC 18.6 H (3.8-10.6) k/uL RBC 4.45 (3.80-5.40) m/uL Hgb 13.4 (11.4-16.0) gm/dL Hct 39.1 (34.0-46.0) % MCV 87.8 (80.0-100.0) fL MCH 30.2 (25.0-35.0) pg MCHC 34.4 (31.0-37.0) g/dL RDW 12.7 (11.5-15.5) % Plt Count 281 (150-450) k/uL Neutrophils % 95 % Lymphocytes % 3 % Monocytes % 1 % Eosinophils % 0 % Basophils % 0 % Neutrophils # 17.8 H (1.3-7.7) k/uL Lymphocytes # 0.5 L (1.0-4.8) k/uL Monocytes # 0.2 (0-1.0) k/uL Eosinophils # 0.1 (0-0.7) k/uL Basophils # 0.0 (0-0.2) k/uL Sodium 137 (137-145) mmol/L Potassium 4.0 (3.5-5.1) mmol/L Chloride 98 (98-107) mmol/L Carbon Dioxide 24 (22-30) mmol/L Anion Gap 15 mmol/L BUN 8 (7-17) mg/dL Creatinine 0.61 (0.52-1.04) mg/dL Est GFR (MDRD) Af Amer >60 (>60 ml/min/1.73 sqM) Est GFR (MDRD) Non-Af >60 (>60 ml/min/1.73 sqM) Glucose 156 H (74-99) mg/dL Calcium 9.6 (8.4-10.2) mg/dL Magnesium 1.6 (1.6-2.3) mg/dL Total Bilirubin 0.5 (0.2-1.3) mg/dL AST 25 (14-36) U/L ALT 37 (9-52) U/L Alkaline Phosphatase 61 (38-126) U/L Total Protein 7.6 (6.3-8.2) g/dL Albumin 4.5 (3.5-5.0) g/dL Amylase 74 (30-110) U/L Lipase 75 (23-300) U/L Urine Color Yellow Urine Appearance Clear (Clear) Urine pH 8.0 (5.0-8.0) Ur Specific Tilly 1.019 (1.001-1.035) Urine Protein 1+ H (Negative) Urine Glucose (UA) 1+ H (Negative) Urine Ketones 3+ H (Negative) Urine Blood Small H (Negative) Urine Nitrite Negative (Negative) Urine Bilirubin Negative (Negative) Urine Urobilinogen <2.0 (<2.0) mg/dL Ur Leukocyte Esterase Negative (Negative) Urine RBC 24 H (0-5) /hpf Urine WBC 1 (0-5) /hpf Ur Squamous Epith Cells 2 (0-4) /hpf Urine Bacteria Rare H (None) /hpf Urine Mucus Rare H (None) /hpf Urine Yeast (Budding) Few H (None) /hpf Disposition <Victoriano Levi - Last Filed: 12/27/17 06:57> <BrianAgusto - Last Filed: 12/27/17 08:39> Clinical Impression: Abdominal pain, Gastritis, Dehydration Disposition: HOME SELF-CARE Condition: Good Instructions: Abdominal Pain (ED), Acute Nausea and Vomiting (ED), Dehydration (ED) Prescriptions: Dicyclomine [Bentyl] 10 mg PO TID #15 capsule Prochlorperazine [Compazine] 10 mg PO Q8H PRN #10 tab PRN Reason: Nausea Referrals: Nicole Fleming MD [Primary Care Provider] - 1-2 days
[2017-12-27 06:32] LABS: Basophils % (A) 0 %; Eosinophils # (A) 0.1 k/uL (0-0.7); Eosinophils % (A) 0 %; HCT 39.1 % (34.0-46.0); HGB 13.4 gm/dL (11.4-16.0); Lymphocytes # (A) 0.5 k/uL (1.0-4.8); Lymphocytes % (A) 3 %; MCH 30.2 pg (25.0-35.0); MCHC 34.4 g/dL (31.0-37.0); MCV 87.8 fL (80.0-100.0); Mean Platelet Volume 6.9; Monocytes # (A) 0.2 k/uL (0-1.0); Monocytes % (A) 1 %; Neutrophils # (A) 17.8 k/uL (1.3-7.7); Neutrophils % (A) 95 %; Platelet Count 281 k/uL (150-450); RBC 4.45 m/uL (3.80-5.40); RDW 12.7 % (11.5-15.5); WBC 18.6 k/uL (3.8-10.6)
[2017-12-27 06:44] LABS: ALT 37 U/L (9-52); AST 25 U/L (14-36); Albumin 4.5 g/dL (3.5-5.0); Alkaline Phosphatase 61 U/L (38-126); Amylase 74 U/L (30-110); Anion Gap 15 mmol/L; Blood Urea Nitrogen 8 mg/dL (7-17); Calcium 9.6 mg/dL (8.4-10.2); Carbon Dioxide 24 mmol/L (22-30); Chloride 98 mmol/L (98-107); Glucose 156 mg/dL (74-99); Lipase 75 U/L (23-300); Sodium 137 mmol/L (137-145); Total Bilirubin 0.5 mg/dL (0.2-1.3); Total Protein 7.6 g/dL (6.3-8.2)
[2017-12-27 06:45] LABS: Appearance,Urine Clear (Clear); Bacteria,Urine Rare /hpf; Bilirubin,Urine Negative (Negative); Blood,Urine Small (Negative); Budding Yeast,Urine Few /hpf; Color,Urine Yellow; Glucose,Urine (UA) 1+ (Negative); Leukocyte Esterase,Urine Negative (Negative); Mucus,Urine Rare /hpf; Protein,Urine 1+ (Negative); RBC,Urine 24 /hpf (0-5); Specific Gravity,Urine 1.019 (1.001-1.035); Squamous Epithelial Cell,Urine 2 /hpf (0-4); Urobilinogen,Urine <2.0 mg/dL (<2.0); WBC,Urine 1 /hpf (0-5)
[2017-12-27 06:46] LABS: Ketones,Urine 3+ (Negative)
[2017-12-27] MEDS ORDERED: RX INFO: IV CONTRAST WAS GIVEN 1 EACH MISC MISCELLANE PRN (06:56)
--- NOTE | 2017-12-27 07:36 | CT ---
EXAMINATION TYPE: CT abdomen pelvis w con DATE OF EXAM: 12/27/2017 HISTORY: Vomiting CT DLP: 828mGycm Automated Exposure Control for Dose Reduction was Utilized. CONTRAST: CT scan of the abdomen and pelvis is performed without oral but with IV Contrast, patient injected wi th CT abdomen and pelvis February 07, 2017 mL of Omnipaque 300. COMPARISON: None. FINDINGS: LUNG BASES: No significant abnormality is appreciated. LIVER/GB: No significant abnormality is appreciated. PANCREAS: No significant abnormality is seen. SPLEEN: No significant abnormality is seen. ADRENALS: No significant abnormality is seen. KIDNEYS: No significant abnormality is seen. BOWEL: Evaluation bowel is suboptimal secondary to lack of enteric contrast. There is low-lying cecum into the right pelvis. There is no suspicious small or large bowel dilatation. Appendix is felt not seen with certainty due to low location in the pelvis. No surrounding inflammatory change however is identified. UTERUS/ADNEXA: Anteverted uterus is seen. There is heterogeneous lobulated round 2.3 cm structure fel t to reflect subserosal fibroid from the fundus. Additional smaller 1.4 cm fibroid is seen superior a nd posterior to this. LYMPH NODES: No greater than 1cm abdominal or pelvic lymph nodes are appreciated. OSSEOUS STRUCTURES: No significant abnormality is seen. OTHER: No significant additional abnormality is seen. IMPRESSION: No bowel obstruction is seen. No significant acute finding is seen to account for patient 's clinical symptoms of vomiting.
[2017-12-27 08:48] VITALS: BP 156/73; PULSE 67; RESP 18; TEMP 98.5
== END 2017-12-27 08:47 | disposition home or self-care (01) ==
LOC: EC 06:03
DX: K29.70 Gastritis, unspecified, without bleeding (principal); E86.0 Dehydration; F32.9 Major depressive disorder, single episode, unspecified; Z79.3 Long term (current) use of hormonal contraceptives; Z79.899 Other long term (current) drug therapy
CPT/HCPCS: 36415; 80053; 82150; 83690; 83735; 85025; 81001; 74177; 99284; 96374; 96361; J2765; Q9967

== ENCOUNTER → 2017-12-30 | Outpatient (CLI) | payer MEDICAID ==
[2017-12-30 21:07] LABS: Basophils # (A) 0.2 k/uL (0-0.2); Basophils % (A) 2 %; Eosinophils % (A) 0 %; HCT 41.1 % (34.0-46.0); HGB 14.3 gm/dL (11.4-16.0); Lymphocytes # (A) 2.1 k/uL (1.0-4.8); Lymphocytes % (A) 22 %; MCHC 34.7 g/dL (31.0-37.0); Mean Platelet Volume 7.8; Monocytes # (A) 0.4 k/uL (0-1.0); Monocytes % (A) 4 %; Neutrophils # (A) 6.8 k/uL (1.3-7.7); Neutrophils % (A) 70 %; Platelet Count 309 k/uL (150-450); RBC 4.47 m/uL (3.80-5.40); WBC 9.7 k/uL (3.8-10.6)
== END | disposition home or self-care (01) ==
LOC: MMGSC 10:58
PROVIDERS: ATTEND Family Medicine
DX: D72.829 Elevated white blood cell count, unspecified (principal)
CPT/HCPCS: 36415; 85025

== ENCOUNTER → 2018-02-02 | Outpatient (CLI) | payer MEDICAID ==
--- NOTE | 2018-02-02 14:02 | MM ---
Reason for exam: screening (asymptomatic). Baseline mammogram. History: Taking hormonal contraceptives beginning at age 20. Physical Findings: A clinical breast exam by your physician is recommended on an annual basis and results should be correlated with mammographic findings. MG 3D Screening Mammo W/Cad Bilateral CC and MLO view(s) were taken. The breast tissue is extremely dense which could obscure a lesion on mammography. There is no discrete abnormality. These results were verbally communicated with the patient and result sheet given to the patient on 02/02/18. ASSESSMENT: Negative, BI-RAD 1 RECOMMENDATION: Routine screening mammogram of both breasts in 1 year.
== END | disposition home or self-care (01) ==
LOC: RADMAMWWP 12:49
PROVIDERS: ATTEND Obstetrics & Gynecology
DX: Z12.31 Encounter for screening mammogram for malignant neoplasm of breast (principal)
CPT/HCPCS: 77063; 77067

== ENCOUNTER → 2021-01-29 | Outpatient (CLI) | payer MEDICAID ==
[2021-01-29 14:58] VITALS: BMI 21.1
== END ==
LOC: DBWHC3 12:53
PROVIDERS: ATTEND Family Medicine
DX: R63.4 Abnormal weight loss (principal)
CPT/HCPCS: 97802

== ENCOUNTER 2023-11-19 13:29 | Day surgery (SDC) | payer OTHER ==
[2023-11-16 09:33] VITALS: BMI 25.0
[~2023-11-19 13:29] MED LIST: LACTATED RINGERS 1,000 ML IV SCH; LIDOCAINE 1% (10MG/ML) FOR IV START INTRADERMA PRN
[2023-11-19 14:01] VITALS: TEMP 97.1
[2023-11-19] MEDS ORDERED: PROPOFOL 10 MG/ML 20 ML VIAL IV ONE (15:10)
--- NOTE | 2023-11-19 15:32 | P.PCN ---
Date of Procedure: 11/19/23 Procedure(s) Performed: BRIEF HISTORY: Patient is a 53-year-old pleasant white female scheduled for an elective colonoscopy as a part of screening for colon cancer. PROCEDURE PERFORMED: Colonoscopy. PREOPERATIVE DIAGNOSIS: Screening for colon cancer. IV sedation per Anesthesia. PROCEDURE: After informed consent was obtained, the patient, was brought into the endoscopy unit. IV sedation was administered by Anesthesia under continuous monitoring. Digital rectal examination was normal. Initially the Olympus CF-160 flexible video colonoscope was then inserted in the rectum, gradually advanced into the cecum without any difficulty. Careful examination was performed as the scope was gradually being withdrawn. Ileocecal valve and the appendiceal orifice were visualized and appeared normal. Prep was excellent. Mucosa of the cecum, ascending colon, transverse colon, descending colon, sigmoid colon, and rectum appeared normal. Retroflexion was performed in the rectum and no lesions were seen. The patient tolerated the procedure well. IMPRESSION: Normal-appearing colon from rectum to cecum with no evidence of colon neoplasia. RECOMMENDATIONS: Findings of this examination were discussed with the patient as well as a family. She was advised to have a repeat screening colonoscopy in 10 years..
[2023-11-19 16:07] VITALS: BP 142/78; PULSE 72; RESP 16
== END 2023-11-19 16:29 | disposition home or self-care (01) ==
LOC: ORWHC2ENDO 13:29
PROVIDERS: ATTEND Internal Medicine Gastroenterology
DX: Z12.11 Encounter for screening for malignant neoplasm of colon (principal); F32.A Depression, unspecified; N80.9 Endometriosis, unspecified; Z79.899 Other long term (current) drug therapy

== ENCOUNTER → 2024-03-02 | Outpatient (CLI) | payer OTHER ==
[2024-03-02 15:53] LABS: Chol/HDL Ratio 3.69 Ratio; LDL Cholesterol,Calculated 188.8 mg/dL (0.0-131.0)
[2024-03-02 16:15] LABS: Basophils # (A) 0.07 X 10*3/uL (0.00-0.10); Basophils % (A) 0.8 %; Eosinophils # (A) 0.21 X 10*3/uL (0.04-0.35); Eosinophils % (A) 2.3 %; HCT 43.3 % (37.2-46.3); HGB 14.1 g/dL (12.0-15.0); Lymphocytes # (A) 2.71 X 10*3/uL (0.90-5.00); Lymphocytes % (A) 29.9 %; MCH 29.6 pg (27.0-32.0); MCHC 32.6 g/dL (32.0-37.0); MCV 90.8 FL (80.0-97.0); Mean Platelet Volume 9.6 FL (9.5-12.2); Monocytes # (A) 0.59 X 10*3/uL (0.20-1.00); Monocytes % (A) 6.5 %; NRBC Per 100 WBC 0 X 10*3/uL (0.00-0.01); Neutrophils # (A) 5.47 X 10*3/uL (1.80-7.70); Neutrophils % (A) 60.3 %; Platelet Count 344 X 10*3/uL (140-440); RBC 4.77 X 10*6/uL (4.10-5.20); RDW 13.6 % (11.5-14.5); WBC 9.07 X 10*3/uL (4.50-10.00)
== END | disposition home or self-care (01) ==
LOC: LABWHC1 09:13
PROVIDERS: ATTEND Psychiatry & Neurology Psychiatry
DX: Z51.81 Encounter for therapeutic drug level monitoring (principal); F33.2 Major depressive disorder, recurrent severe without psychotic features; Z79.899 Other long term (current) drug therapy
CPT/HCPCS: 36415; 80061; 82306; 82607; 84439; 84443; 85025

== ENCOUNTER → 2024-03-13 | Outpatient (CLI) | payer OTHER ==
[2024-03-13 10:07] LABS: Phosphorus 4.2 mg/dL (2.5-4.5)
[2024-03-13 10:42] LABS: Ionized Calcium 5.1 mg/dL (4.5-5.3)
== END | disposition home or self-care (01) ==
LOC: LABWHC1 09:19
PROVIDERS: ATTEND Family Medicine
DX: R79.9 Abnormal finding of blood chemistry, unspecified (principal)
CPT/HCPCS: 36415; 82330; 83970; 84100

== ENCOUNTER → 2024-03-13 | Outpatient (CLI) | payer OTHER ==
--- NOTE | 2024-03-14 07:32 | US ---
EXAMINATION TYPE: US abdomen APPY DATE OF EXAM: 03/13/2024 COMPARISON: NONE CLINICAL INDICATION: Female, 53 years old with history of R10.31 RLQ; TECHNIQUE: Multiple sonographic images of the right lower quadrant were obtained with graded compress ion. FINDINGS: APPENDIX AP Diameter (normal < 6mm): 3 mm Measured outer wall to outer wall. 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 Nonvisualization of the complete appendix. Portions visualized appear normal. Clinical management of any suspected appendicitis is recommended.
== END | disposition home or self-care (01) ==
LOC: RADUSWWP 08:23
PROVIDERS: ATTEND Family Medicine
DX: R10.31 Right lower quadrant pain (principal)
CPT/HCPCS: 76705

== ENCOUNTER → 2024-03-24 | Outpatient (CLI) | payer OTHER ==
--- NOTE | 2024-03-24 10:56 | CT ---
EXAMINATION TYPE: CT abdomen pelvis w con DATE OF EXAM: 03/24/2024 COMPARISON: 12/27/2017 HISTORY: 53-year-old female R10.84, Generalized abdominal pain. RLQ pain that radiates into back TECHNIQUE: Contiguous axial scanning of the abdomen and pelvis following administration of 100 ml Iso joseline 300 IV contrast. Delayed images through the kidneys and coronal/sagittal reconstructions perform ed. CT DLP: 581 mGycm Automated exposure control for dose reduction was used. FINDINGS: Heart normal size without pericardial effusion. Lung bases clear without pleural effusion. Suspected tiny hiatal hernia. A small left lower paraesophageal lymph node measuring 6 mm not seen pr eviously may be reactive. No focal liver lesion or biliary ductal dilatation. Portal venous system is patent. Gallbladder, adrenal glands, kidneys, spleen, and pancreas within normal limits. No dilated small bowel, free fluid, or free air. No mesenteric or retroperitoneal lymphadenopathy. Normal appendix noted in the right lower quadrant. Oral contrast progressed to the rectum. Mild stool within the rectum. No pericolonic inflammatory change. Bladder is urine distended. Uterus anteverted. Left ovary is visualized. Right ovary not clearly deli neated from adjacent bowel loops. No abnormal fluid collection in the pelvis or pelvic lymphadenopath y. Bones: No osseous destructive process. IMPRESSION: 1. SUSPECT A TINY HIATAL HERNIA. A SMALL LEFT LOWER PARAESOPHAGEAL LYMPH NODE MEASURES 6 MM AND WAS N OT SEEN PREVIOUSLY. PROBABLY REACTIVE/POST INFLAMMATORY. CONSIDER PRECAUTIONARY 6 MONTH FOLLOW-UP CT TO REASSESS. 2. OTHERWISE, NO ACUTE INFLAMMATORY PROCESS IDENTIFIED IN THE ABDOMEN OR PELVIS TO EXPLAIN THE PATIEN T'S SYMPTOMS.
== END | disposition home or self-care (01) ==
LOC: RADCTMAIN 07:50
PROVIDERS: ATTEND Family Medicine
DX: R10.31 Right lower quadrant pain (principal)
CPT/HCPCS: 74177; Q9967

== ENCOUNTER → 2024-05-05 | Outpatient (CLI) | payer OTHER ==
--- NOTE | 2024-05-12 12:23 | MM ---
Reason for Exam: Screening (asymptomatic). Last mammogram was performed 6 year(s) and 3 month(s) ago. Patient History: Menarche at age 20. Patient has no children. Postmenopausal. Currently using Hormonal Contraceptives, starting at age 20. Risk Values: Kisha 5 year model risk: 1.1%. NCI Lifetime model risk: 8.8%. Prior Study Comparison: 02/02/2018 Bilateral Screening Mammogram, [facility]. Tissue Density: The breasts are heterogeneously dense, which may obscure small masses. Findings: Analyzed By CAD. Right breast: There is no suspicious group of microcalcifications or new suspicious mass. Left breast: There is no suspicious group of microcalcifications or new suspicious mass. Overall Assessment: Negative, BI-RAD 1 Management: Screening Mammogram of both breasts in [address] [facility] will attempt to contact patient to return for supplemental views and ultrasound if indicated. Patient should continue monthly self-breast exams. A clinical breast exam by your physician is recommended on an annual basis. This exam should not preclude additional follow-up of suspicious palpable abnormalities. Note on Kisha scores and lifetime risk: 1. A Kisha score greater than 3% is considered moderate risk. If this is the case, consider specialist referral to assess eligibility for a risk reducing agent. 2. If overall lifetime risk for the development of breast cancer is 20% or higher, the patient may qualify for future screening with alternating mammogram and breast MRI. Electronically signed and approved by: Agusto Dugan DO
== END | disposition home or self-care (01) ==
LOC: RADMAMWWP 07:48
PROVIDERS: ATTEND Obstetrics & Gynecology
DX: Z12.31 Encounter for screening mammogram for malignant neoplasm of breast (principal); R92.333 Mammographic heterogeneous density, bilateral breasts; Z78.0 Asymptomatic menopausal state
CPT/HCPCS: 77063; 77067

== ENCOUNTER → 2024-10-02 | Outpatient (CLI) | payer OTHER ==
[2024-10-02 14:50] LABS: Basophils # (A) 0.09 X 10*3/uL (0.00-0.10); Eosinophils # (A) 0.12 X 10*3/uL (0.04-0.35); Eosinophils % (A) 1.3 %; HCT 41.6 % (37.2-46.3); HGB 13.8 g/dL (12.0-15.0); Lymphocytes # (A) 2.51 X 10*3/uL (0.90-5.00); MCH 29.4 pg (27.0-32.0); MCHC 33.2 g/dL (32.0-37.0); MCV 88.5 FL (80.0-97.0); Mean Platelet Volume 9.5 FL (9.5-12.2); Monocytes # (A) 0.54 X 10*3/uL (0.20-1.00); Monocytes % (A) 5.8 %; NRBC Per 100 WBC 0 X 10*3/uL (0.00-0.01); Neutrophils # (A) 5.99 X 10*3/uL (1.80-7.70); Neutrophils % (A) 64.6 %; Platelet Count 400 X 10*3/uL (140-440); RDW 13.6 % (11.5-14.5); WBC 9.28 X 10*3/uL (4.50-10.00)
[2024-10-02 15:19] LABS: ALT 21 U/L (8-44); AST 17 U/L (13-35); Albumin 4.4 g/dL (3.8-4.9); Albumin/Globulin Ratio 1.83 Ratio (1.60-3.17); Alkaline Phosphatase 106 U/L (41-126); BUN/Creat Ratio 8.78 Ratio (12.00-20.00); Bilirubin, Conjugated <0.20 mg/dL (0.20-0.40); Bilirubin,Unconjugated >0.10 mg/dL (0.20-1.00); Blood Urea Nitrogen 7.9 mg/dL (9.0-27.0); Calcium 9.6 mg/dL (8.7-10.3); Chloride 104 mmol/L (96-109); Globulin 2.4 g/dL (1.6-3.3); Glucose 93 mg/dL (70-110); Potassium 4.5 mmol/L (3.5-5.5); Sodium 141 mmol/L (135-145); T4, Free (Free Thyroxine) 0.82 ng/dL (0.80-1.80); Total Bilirubin 0.3 mg/dL (0.3-1.2); Total Protein 6.8 g/dL (6.2-8.2)
== END | disposition home or self-care (01) ==
LOC: LABWHC1 09:46
PROVIDERS: ATTEND Psychiatry & Neurology Psychiatry
DX: Z51.81 Encounter for therapeutic drug level monitoring (principal); Z79.899 Other long term (current) drug therapy
CPT/HCPCS: 36415; 80053; 82248; 82306; 83036; 84439; 84443; 84479; 85025